=== PATIENT | female | born 1945 | race Caucasian/White ===

== ENCOUNTER 2020-04-30 19:13 | Inpatient (IN) ==
[2020-04-30] MEDS ORDERED: methylPREDNISolone SOD SUC 125 MG/2 ML VIAL IV STA (19:46)
[2020-04-30] MEDS ORDERED: FUROSEMIDE 40 MG/4 ML VIAL IV STA (19:46)
[2020-04-30] MEDS ORDERED: ONDANSETRON 4 MG/2 ML VIAL IV STA (19:46)
[2020-04-30] MEDS ORDERED: ALBUTEROL/IPRATROPIUM 3 ML NEB RESP TX STA (19:46)
[2020-04-30 19:55] LABS: Basophils % 0.2 % (0.0-0.8); Eosinophils # 0.1 10*3/uL (0.0-0.87); Eosinophils % 0.7 % (0.00-10.9); Hematocrit 34.5 VOL% (35.7-47.0); Hemoglobin 11.8 GM/DL (12.0-16.0); Immature Granulocytes % 0.7 %; Immature Granulocytes Absolute 0.07 #; Lymphocytes # 1.8 10*3/uL (1.4-4.0); Lymphocytes % 18.6 % (21.3-54.2); Mean Corpuscular HGB Conc 34.2 GM/DL (32-36); Mean Corpuscular Volume 121.5 FL (87-102); Mean Platelet Volume 11.4 FL (9.6-12.0); Neutrophils % 74.8 % (38.7-73.9); Platelet Count 307 T/CUMM (130-400); Red Blood Count 2.84 MC/CUMM (3.8-5.5); Red Cell Distribution Width 12.9 % (9.3-17.3); White Blood Count 9.9 T/CUMM (4-12)
[2020-04-30 20:11] LABS: INR 1.1; PT Patient Result 12.2 SECS (9.8-11.9)
[2020-04-30 20:13] LABS: Alanine Aminotransferase 10 U/L (13-56); Albumin 3.7 G/DL (3.4-5.0); Alkaline Phosphatase 173 U/L (45-117); Amylase 27 U/L (25-115); Aspartate Amino Transferase 17 U/L (0-37); Blood Urea Nitrogen 31 MG/DL (7-18); Calcium 9.6 MG/DL (8.5-10.1); Estimated Glom Filtration Rate 45 ML/MIN; Free T4 (Free Thyroxine) 1.21 NG/DL (0.76-1.46); Glucose 133 MG/DL (74-106); Total Protein 7.5 G/DL (6.4-8.3); Troponin I < 0.015 NG/ML (0.00-0.045)
[2020-04-30] MEDS ORDERED: MAGNESIUM SULF RIDER 2 GM in PREMIX 1 EACH IV STA (20:39)
[2020-04-30 22:23] LABS: Bilirubin,Urine Negative (Negative); Blood, Urine Negative (Negative); Glucose,Urine (UA) Negative (Negative); Hyaline Casts,Urine 3 /LPF (0-3); Ketones,Urine Negative (Negative); Mucus,Urine Occasional /LPF (Occasional); Nitrite,Urine Negative (Negative); Protein,Urine Negative; RBC,Urine 1 /HPF (0-4); Squamous Epithelial Cell,Urine Occasional /HPF (0-10); Urine Appearance CLEAR (Clear); Urine Color Yellow (Yellow); Urine Specific Gravity 1.015 (1.001-1.035); Urine Urobilinogen < 2.0 EU/DL (0.2-1.0); WBC,Urine 1 /HPF (0-6)
[2020-04-30] MEDS ORDERED: ENOXAPARIN 100 MG/ML SYRINGE SUBCUT STA (22:24)
[2020-04-30 23:08] LABS: ABG Base Excess -0.7 MMOL/L (-2.5-2.5); ABG HCO3 23.6 MMOL/L (20-26); ABG PCO2 38.9 MM HG (35-48); ABG PH 7.398 (7.35-7.45); ABG PO2 53.1 MM HG (80-95); ABG TCO2 21.6 MMOL/L (23-27); Allen Test Positive
[2020-04-30] MEDS ORDERED: DEXTROSE 50% 25 GM/50 ML VIAL IV PRN (23:18)
[2020-04-30] MEDS ORDERED: GLUCAGON 1 MG VIAL IM PRN (23:18)
[2020-04-30] MEDS ORDERED: ONDANSETRON 4 MG/2 ML VIAL IV PRN (23:18)
[2020-05-01] MEDS ORDERED: ALBUTEROL 2.5 MG/3 ML NEB RESP TX SCH (01:00)
[2020-05-01] MEDS: SODIUM CHLORIDE 0.9% 1,000 ML IV SCH ×2 (02:43→17:47)
[2020-05-01] MEDS: cefTRIAXone 1,000 MG in SYRINGE 1 EACH IV SCH ×2 (02:43)
[2020-05-01 04:02] LABS: Basophils % 0.1 % (0.0-0.8); Hematocrit 33.2 VOL% (35.7-47.0); Hemoglobin 11.3 GM/DL (12.0-16.0); Immature Granulocytes % 1.3 %; Immature Granulocytes Absolute 0.09 #; Lymphocytes # 0.7 10*3/uL (1.4-4.0); Lymphocytes % 9.6 % (21.3-54.2); Mean Corpuscular Volume 121.6 FL (87-102); Mean Platelet Volume 11.8 FL (9.6-12.0); Monocytes % 1.1 % (1.7-12.7); Neutrophils % 87.9 % (38.7-73.9); Platelet Count 229 T/CUMM (130-400); Red Blood Count 2.73 MC/CUMM (3.8-5.5); Red Cell Distribution Width 12.8 % (9.3-17.3); White Blood Count 7.1 T/CUMM (4-12)
[2020-05-01 04:27] LABS: Platelet Estimate Adequate
[2020-05-01 04:28] LABS: Calcium 9.2 MG/DL (8.5-10.1); Osmolality,Calculated 279.1 MOS/KG (273-304)
[2020-05-01] MEDS: GABAPENTIN 100 MG CAPSULE PO SCH (08:29)
[2020-05-01] MEDS: AZITHROMYCIN 250 MG TABLET PO SCH (08:29)
[2020-05-01] MEDS: HYDROXYUREA 500 MG CAPSULE PO SCH (08:29)
[2020-05-01] MEDS: PANTOPRAZOLE 40 MG TABLET PO SCH (08:29)
[2020-05-01] MEDS: amLODIPine 5 MG TABLET PO SCH (08:29)
[2020-05-01] MEDS: METHOTREXATE 2.5 MG TABLET PO SCH (08:29)
[2020-05-01] MEDS: atenoloL 50 MG TABLET PO SCH (08:29)
[2020-05-01] MEDS: predniSONE 1 MG TABLET PO SCH ×3 (08:29→20:19)
[2020-05-01] MEDS: ENOXAPARIN 100 MG/ML SYRINGE SUBCUT SCH ×2 (08:29→20:19)
[2020-05-01] MEDS: MAGNESIUM CHLORIDE 64 MG TABLET PO SCH (11:11)
[2020-05-01] MEDS ORDERED: HALOPERIDOL 5 MG/ML AMP IV PRN (16:58)
[2020-05-01] MEDS: SIMVASTATIN 20 MG TABLET PO SCH (20:19)
[2020-05-02] MEDS: cefTRIAXone 1,000 MG in SYRINGE 1 EACH IV SCH (00:19)
[2020-05-02 04:23] LABS: Basophils % 0.1 % (0.0-0.8); Hematocrit 33.2 VOL% (35.7-47.0); Hemoglobin 11.2 GM/DL (12.0-16.0); Immature Granulocytes % 1.3 %; Immature Granulocytes Absolute 0.16 #; Lymphocytes # 1.1 10*3/uL (1.4-4.0); Lymphocytes % 9.1 % (21.3-54.2); Mean Corpuscular HGB Conc 33.7 GM/DL (32-36); Mean Corpuscular Volume 120.3 FL (87-102); Mean Platelet Volume 11.3 FL (9.6-12.0); Monocytes % 5.3 % (1.7-12.7); Neutrophils % 84.2 % (38.7-73.9); Platelet Count 276 T/CUMM (130-400); Red Blood Count 2.76 MC/CUMM (3.8-5.5); Red Cell Distribution Width 12.6 % (9.3-17.3); White Blood Count 12.2 T/CUMM (4-12)
[2020-05-02 04:43] LABS: Calcium 9.2 MG/DL (8.5-10.1); Osmolality,Calculated 287.7 MOS/KG (273-304)
[2020-05-02 04:49] LABS: Hypochromasia 1+; Platelet Estimate Adequate
[2020-05-02] MEDS: PANTOPRAZOLE 40 MG TABLET PO SCH (08:35)
[2020-05-02] MEDS: MAGNESIUM CHLORIDE 64 MG TABLET PO SCH (08:35)
[2020-05-02] MEDS: METHOTREXATE 2.5 MG TABLET PO SCH (08:35)
[2020-05-02] MEDS: HYDROXYUREA 500 MG CAPSULE PO SCH (08:36)
[2020-05-02] MEDS: GABAPENTIN 100 MG CAPSULE PO SCH (08:36)
[2020-05-02] MEDS: predniSONE 1 MG TABLET PO SCH ×3 (08:36→21:15)
[2020-05-02] MEDS: AZITHROMYCIN 250 MG TABLET PO SCH (08:36)
[2020-05-02] MEDS: atenoloL 50 MG TABLET PO SCH (08:44)
[2020-05-02] MEDS: amLODIPine 5 MG TABLET PO SCH (08:44)
[2020-05-02] MEDS: APIXABAN 5 MG TABLET PO SCH ×2 (08:48→21:15)
[2020-05-02] MEDS: SIMVASTATIN 20 MG TABLET PO SCH (21:15)
[2020-05-03] MEDS ORDERED: IBUPROFEN 600 MG TABLET PO PRN ×2 (00:09→00:30)
[2020-05-03] MEDS: cefTRIAXone 1,000 MG in SYRINGE 1 EACH IV SCH (00:12)
[2020-05-03 05:24] LABS: Basophils % 0.1 % (0.0-0.8); Eosinophils # 0.1 10*3/uL (0.0-0.87); Eosinophils % 0.9 % (0.00-10.9); Hematocrit 32.1 VOL% (35.7-47.0); Hemoglobin 10.8 GM/DL (12.0-16.0); Immature Granulocytes % 0.9 %; Immature Granulocytes Absolute 0.06 #; Lymphocytes # 1.5 10*3/uL (1.4-4.0); Lymphocytes % 21.1 % (21.3-54.2); Mean Corpuscular HGB Conc 33.6 GM/DL (32-36); Mean Corpuscular Volume 121.1 FL (87-102); Mean Platelet Volume 11.5 FL (9.6-12.0); Monocytes % 5.8 % (1.7-12.7); NRBC # 0.02 10*3/uL; Neutrophils % 71.2 % (38.7-73.9); Platelet Count 226 T/CUMM (130-400); Red Blood Count 2.65 MC/CUMM (3.8-5.5); Red Cell Distribution Width 12.9 % (9.3-17.3); White Blood Count 6.9 T/CUMM (4-12)
[2020-05-03 05:40] LABS: Calcium 8.7 MG/DL (8.5-10.1); Osmolality,Calculated 288.5 MOS/KG (273-304)
[2020-05-03 05:50] LABS: Hypochromasia 1+; Macrocytosis 1+; Platelet Estimate Normal; Polychromasia Slight
[2020-05-03] MEDS: AZITHROMYCIN 250 MG TABLET PO SCH (09:37)
[2020-05-03] MEDS: MAGNESIUM CHLORIDE 64 MG TABLET PO SCH (09:37)
[2020-05-03] MEDS: APIXABAN 5 MG TABLET PO SCH (09:38)
[2020-05-03] MEDS: HYDROXYUREA 500 MG CAPSULE PO SCH (09:38)
[2020-05-03] MEDS: predniSONE 1 MG TABLET PO SCH (09:38)
[2020-05-03] MEDS: GABAPENTIN 100 MG CAPSULE PO SCH (09:38)
[2020-05-03] MEDS: amLODIPine 5 MG TABLET PO SCH (09:38)
[2020-05-03] MEDS: METHOTREXATE 2.5 MG TABLET PO SCH (09:39)
[2020-05-03] MEDS: atenoloL 50 MG TABLET PO SCH (09:39)
[2020-05-03] MEDS: PANTOPRAZOLE 40 MG TABLET PO SCH (09:53)
[2020-05-03 13:54] VITALS: BP 133/60
[2020-05-04] MEDS ORDERED: LEVOFLOXACIN 500 MG TABLET PO SCH (09:00)
[2020-05-09] MEDS ORDERED: APIXABAN 5 MG TABLET PO SCH (21:00)
== END 2020-05-03 15:40 | disposition home or self-care (01) | DRG 175 ==
LOC: N.ED 19:13 → N.EDINP 23:18 → N.CC 05-01 00:52 → N.4E 05-02 15:26
PROVIDERS: ADMIT Hospitalist; ATTEND Hospitalist

== ENCOUNTER 2020-05-15 16:57 | Inpatient (IN) ==
[2020-05-15] MEDS ORDERED: SODIUM CHLORIDE 0.9% 500 ML IV STA (18:09)
[2020-05-15 18:44] LABS: Basophils % 0.2 % (0.0-0.8); Eosinophils # 0.2 10*3/uL (0.0-0.87); Eosinophils % 1.2 % (0.00-10.9); Hematocrit 32.9 VOL% (35.7-47.0); Hemoglobin 10.8 GM/DL (12.0-16.0); Immature Granulocytes Absolute 0.24 #; Lymphocytes # 1.3 10*3/uL (1.4-4.0); Lymphocytes % 10.4 % (21.3-54.2); Mean Corpuscular HGB Conc 32.8 GM/DL (32-36); Monocytes % 4.9 % (1.7-12.7); NRBC # 0.03 10*3/uL; Neutrophils % 81.3 % (38.7-73.9); Platelet Count 263 T/CUMM (130-400); Red Blood Count 2.72 MC/CUMM (3.8-5.5); Red Cell Distribution Width 13.8 % (9.3-17.3); White Blood Count 12.1 T/CUMM (4-12)
[2020-05-15 18:50] LABS: INR 1.5; PT Patient Result 15.6 SECS (9.8-11.9)
[2020-05-15 18:53] LABS: Alanine Aminotransferase < 9 U/L (13-56); Albumin 3.1 G/DL (3.4-5.0); Alkaline Phosphatase 226 U/L (45-117); Aspartate Amino Transferase 16 U/L (0-37); Blood Urea Nitrogen 30 MG/DL (7-18); Calcium 9.7 MG/DL (8.5-10.1); Estimated Glom Filtration Rate 38 ML/MIN; Glucose 106 MG/DL (74-106); Osmolality,Calculated 273.2 MOS/KG (273-304); Total Protein 7.3 G/DL (6.4-8.3); Troponin I < 0.015 NG/ML (0.00-0.045)
[2020-05-15] MEDS ORDERED: SODIUM CHLORIDE 0.9% 1,000 ML IV STA (20:06)
[2020-05-15] MEDS ORDERED: CEFEPIME 1,000 MG in SODIUM CHLORIDE 0.9% 100 ML IV STA (20:07)
[2020-05-15] MEDS ORDERED: VANCOMYCIN INJ 1,000 MG in SODIUM CHLORIDE 0.9% 250 ML IV STA (20:07)
[2020-05-15] MEDS ORDERED: ONDANSETRON 4 MG/2 ML VIAL IV PRN (21:41)
[2020-05-15] MEDS ORDERED: DEXTROSE 50% 25 GM/50 ML VIAL IV PRN (21:41)
[2020-05-15] MEDS ORDERED: GLUCAGON 1 MG VIAL IM PRN (21:41)
[2020-05-16 00:25] LABS: Basophils % 0.4 % (0.0-0.8); Eosinophils # 0.1 10*3/uL (0.0-0.87); Hematocrit 30.9 VOL% (35.7-47.0); Hemoglobin 10.2 GM/DL (12.0-16.0); Immature Granulocytes % 2.7 %; Immature Granulocytes Absolute 0.29 #; Lymphocytes # 1.7 10*3/uL (1.4-4.0); Lymphocytes % 15.5 % (21.3-54.2); Mean Corpuscular Volume 122.6 FL (87-102); Mean Platelet Volume 10.9 FL (9.6-12.0); Monocytes % 5.7 % (1.7-12.7); NRBC # 0.02 10*3/uL; Neutrophils % 74.7 % (38.7-73.9); Platelet Count 234 T/CUMM (130-400); Red Blood Count 2.52 MC/CUMM (3.8-5.5); Red Cell Distribution Width 13.8 % (9.3-17.3); White Blood Count 10.9 T/CUMM (4-12)
[2020-05-16 00:51] LABS: Calcium 8.8 MG/DL (8.5-10.1); Osmolality,Calculated 279.7 MOS/KG (273-304)
[2020-05-16] MEDS: CEFEPIME 1,000 MG in SODIUM CHLORIDE 0.9% 100 ML IV SCH ×5 (01:52→21:13)
[2020-05-16] MEDS: CALCIUM (CARBONATE)/VITAMIN D 500 MG-200 UNIT TABLET PO SCH (08:13)
[2020-05-16] MEDS: CYANOCOBALAMIN 500 MCG TABLET PO SCH (08:13)
[2020-05-16] MEDS: predniSONE 1 MG TABLET PO SCH (08:14)
[2020-05-16] MEDS: atenoloL 50 MG TABLET PO SCH (08:14)
[2020-05-16] MEDS: PANTOPRAZOLE 40 MG TABLET PO SCH (08:14)
[2020-05-16] MEDS: ACETAMINOPHEN 325 MG TABLET PO PRN ×3 (08:14→21:07)
[2020-05-16] MEDS: FLUoxetine 20 MG CAPSULE PO SCH (08:14)
[2020-05-16] MEDS ORDERED: APIXABAN 5 MG TABLET PO SCH (09:00)
[2020-05-16] MEDS ORDERED: FUROSEMIDE 40 MG/4 ML VIAL IV ONE (16:05)
[2020-05-16] MEDS: methylPREDNISolone SOD SUC 40 MG/1 ML VIAL IV SCH (17:53)
[2020-05-16] MEDS: APIXABAN 5 MG TABLET PO SCH (21:06)
[2020-05-16] MEDS: GABAPENTIN 100 MG CAPSULE PO SCH (21:07)
[2020-05-16] MEDS: PRAMIPEXOLE 0.25 MG TABLET PO SCH (21:08)
[2020-05-16] MEDS: SIMVASTATIN 20 MG TABLET PO SCH (21:08)
[2020-05-16 21:55] LABS: Bacteria,Urine Occasional /HPF (Few); Bilirubin,Urine Negative (Negative); Blood, Urine Small mg/dL (Negative); Glucose,Urine (UA) Negative (Negative); Hyaline Casts,Urine 8 /LPF (0-3); Ketones,Urine 20 mg/dL (Negative); Mucus,Urine Occasional /LPF (Occasional); Nitrite,Urine Negative (Negative); Protein,Urine Negative; RBC,Urine 2 /HPF (0-4); Squamous Epithelial Cell,Urine Occasional /HPF (0-10); Urine Appearance CLEAR (Clear); Urine Color Yellow (Yellow); Urine Specific Gravity 1.015 (1.001-1.035); Urine Urobilinogen < 2.0 EU/DL (0.2-1.0); WBC,Urine 5 /HPF (0-6)
[2020-05-16] MEDS: VANCOMYCIN INJ 1,250 MG in SODIUM CHLORIDE 0.9% 250 ML IV SCH (22:22)
[2020-05-17] MEDS: methylPREDNISolone SOD SUC 40 MG/1 ML VIAL IV SCH ×3 (02:01→16:36)
[2020-05-17] MEDS: CEFEPIME 1,000 MG in SODIUM CHLORIDE 0.9% 100 ML IV SCH ×3 (04:20→21:41)
[2020-05-17 06:14] LABS: Basophils % 0.4 % (0.0-0.8); Eosinophils % 0.3 % (0.00-10.9); Hemoglobin 9.7 GM/DL (12.0-16.0); Immature Granulocytes % 2.2 %; Immature Granulocytes Absolute 0.21 #; Lymphocytes # 0.7 10*3/uL (1.4-4.0); Lymphocytes % 7.6 % (21.3-54.2); Mean Corpuscular HGB Conc 32.3 GM/DL (32-36); Mean Platelet Volume 11.6 FL (9.6-12.0); Monocytes % 1.8 % (1.7-12.7); NRBC # 0.04 10*3/uL; Neutrophils % 87.7 % (38.7-73.9); Platelet Count 220 T/CUMM (130-400); Red Blood Count 2.44 MC/CUMM (3.8-5.5); Red Cell Distribution Width 13.5 % (9.3-17.3); White Blood Count 9.7 T/CUMM (4-12)
[2020-05-17 06:46] LABS: % Iron Saturation 23.2 % (18-50); Ferritin 140.8 ng/ml (8-252)
[2020-05-17 07:12] LABS: Folate 22.7 NG/ML (5.4-24.0); Vitamin B12 1866 PG/ML (211-911)
[2020-05-17 07:24] LABS: Calcium 9.2 MG/DL (8.5-10.1)
[2020-05-17 08:08] LABS: Sedimentation Rate-Westergren 106 MM/HR (0-30)
[2020-05-17 08:47] LABS: Osmolality,Calculated 278.7 MOS/KG (273-304)
[2020-05-17] MEDS: APIXABAN 5 MG TABLET PO SCH ×2 (08:54→21:39)
[2020-05-17] MEDS: CYANOCOBALAMIN 500 MCG TABLET PO SCH (08:54)
[2020-05-17] MEDS: FLUoxetine 20 MG CAPSULE PO SCH (08:54)
[2020-05-17] MEDS: PANTOPRAZOLE 40 MG TABLET PO SCH (08:54)
[2020-05-17] MEDS: atenoloL 50 MG TABLET PO SCH (08:54)
[2020-05-17] MEDS: predniSONE 1 MG TABLET PO SCH (08:55)
[2020-05-17] MEDS: CALCIUM (CARBONATE)/VITAMIN D 500 MG-200 UNIT TABLET PO SCH (08:55)
[2020-05-17] MEDS: AZITHROMYCIN INJ 500 MG in SODIUM CHLORIDE 0.9% 250 ML IV SCH (16:36)
[2020-05-17] MEDS: ACETAMINOPHEN 325 MG TABLET PO PRN (18:01)
[2020-05-17] MEDS: VANCOMYCIN INJ 1,250 MG in SODIUM CHLORIDE 0.9% 250 ML IV SCH (21:41)
[2020-05-17] MEDS: PRAMIPEXOLE 0.25 MG TABLET PO SCH (21:41)
[2020-05-17] MEDS: GABAPENTIN 100 MG CAPSULE PO SCH (21:41)
[2020-05-17] MEDS: SIMVASTATIN 20 MG TABLET PO SCH (21:41)
[2020-05-18 05:39] LABS: Basophils % 0.2 % (0.0-0.8); Eosinophils # 0.1 10*3/uL (0.0-0.87); Eosinophils % 0.5 % (0.00-10.9); Hematocrit 28.3 VOL% (35.7-47.0); Hemoglobin 9.2 GM/DL (12.0-16.0); Immature Granulocytes % 1.7 %; Immature Granulocytes Absolute 0.21 #; Lymphocytes # 1.4 10*3/uL (1.4-4.0); Lymphocytes % 11.4 % (21.3-54.2); Mean Corpuscular HGB Conc 32.5 GM/DL (32-36); Mean Corpuscular Volume 121.5 FL (87-102); Mean Platelet Volume 11.5 FL (9.6-12.0); Monocytes % 6.7 % (1.7-12.7); NRBC # 0.02 10*3/uL; Neutrophils % 79.5 % (38.7-73.9); Platelet Count 241 T/CUMM (130-400); Red Blood Count 2.33 MC/CUMM (3.8-5.5); Red Cell Distribution Width 13.5 % (9.3-17.3); White Blood Count 12.1 T/CUMM (4-12)
[2020-05-18 06:27] LABS: Hypochromasia Slight; Macrocytosis 1+; Platelet Estimate Normal
[2020-05-18 06:45] LABS: Calcium 9.2 MG/DL (8.5-10.1); Osmolality,Calculated 276.8 MOS/KG (273-304)
[2020-05-18] MEDS: CEFEPIME 1,000 MG in SODIUM CHLORIDE 0.9% 100 ML IV SCH ×2 (10:18→18:32)
[2020-05-18] MEDS: methylPREDNISolone SOD SUC 40 MG/1 ML VIAL IV SCH ×2 (10:18→18:33)
[2020-05-18] MEDS: predniSONE 1 MG TABLET PO SCH (10:19)
[2020-05-18] MEDS: CALCIUM (CARBONATE)/VITAMIN D 500 MG-200 UNIT TABLET PO SCH (10:19)
[2020-05-18] MEDS: FLUoxetine 20 MG CAPSULE PO SCH (10:20)
[2020-05-18] MEDS: CYANOCOBALAMIN 500 MCG TABLET PO SCH (10:20)
[2020-05-18] MEDS: atenoloL 50 MG TABLET PO SCH (10:20)
[2020-05-18] MEDS: PANTOPRAZOLE 40 MG TABLET PO SCH (10:20)
[2020-05-18] MEDS: APIXABAN 5 MG TABLET PO SCH ×2 (10:20→20:26)
[2020-05-18] MEDS: VANCOMYCIN INJ 1,250 MG in SODIUM CHLORIDE 0.9% 250 ML IV SCH (11:49)
[2020-05-18] MEDS: AZITHROMYCIN INJ 500 MG in SODIUM CHLORIDE 0.9% 250 ML IV SCH (16:40)
[2020-05-18] MEDS: ALBUTEROL/IPRATROPIUM 3 ML NEB RESP TX SCH (19:24)
[2020-05-18] MEDS: PRAMIPEXOLE 0.25 MG TABLET PO SCH (20:23)
[2020-05-18] MEDS: SIMVASTATIN 20 MG TABLET PO SCH (20:23)
[2020-05-18] MEDS: GABAPENTIN 100 MG CAPSULE PO SCH (20:24)
[2020-05-18] MEDS ORDERED: ZALEPLON 5 MG CAPSULE PO ONE (23:30)
[2020-05-18] MEDS ORDERED: ZOLPIDEM 5 MG TABLET PO ONE (23:30)
[2020-05-19] MEDS: ALBUTEROL/IPRATROPIUM 3 ML NEB RESP TX SCH ×4 (01:05→20:01)
[2020-05-19] MEDS: methylPREDNISolone SOD SUC 40 MG/1 ML VIAL IV SCH ×3 (01:57→18:17)
[2020-05-19] MEDS: CEFEPIME 1,000 MG in SODIUM CHLORIDE 0.9% 100 ML IV SCH ×3 (02:01→21:10)
[2020-05-19 06:12] LABS: Basophils % 0.1 % (0.0-0.8); Hematocrit 27.1 VOL% (35.7-47.0); Hemoglobin 9.1 GM/DL (12.0-16.0); Immature Granulocytes % 2.1 %; Lymphocytes # 0.6 10*3/uL (1.4-4.0); Mean Corpuscular HGB Conc 33.6 GM/DL (32-36); Mean Corpuscular Volume 118.3 FL (87-102); Mean Platelet Volume 11.5 FL (9.6-12.0); Monocytes % 2.1 % (1.7-12.7); NRBC # 0.03 10*3/uL; Neutrophils % 89.7 % (38.7-73.9); Platelet Count 222 T/CUMM (130-400); Red Blood Count 2.29 MC/CUMM (3.8-5.5); Red Cell Distribution Width 13.7 % (9.3-17.3); White Blood Count 9.7 T/CUMM (4-12)
[2020-05-19 06:38] LABS: Calcium 9.4 MG/DL (8.5-10.1); Osmolality,Calculated 282.7 MOS/KG (273-304)
[2020-05-19 07:06] LABS: Band Neutrophils 1 % (0-10); Hypochromasia 1+; Lymphocytes 5 % (20-55); Macrocytosis Slight; Nucleated Red Blood Cells 1 (0-5); Ovalocytes Slight; Platelet Estimate Adequate; Segmented Neutrophils 93 % (50-85); Total Cells Counted 100
[2020-05-19] MEDS: CALCIUM (CARBONATE)/VITAMIN D 500 MG-200 UNIT TABLET PO SCH (10:52)
[2020-05-19] MEDS: FLUoxetine 20 MG CAPSULE PO SCH (10:52)
[2020-05-19] MEDS: predniSONE 1 MG TABLET PO SCH (10:53)
[2020-05-19] MEDS: atenoloL 50 MG TABLET PO SCH (10:53)
[2020-05-19] MEDS: CYANOCOBALAMIN 500 MCG TABLET PO SCH (10:53)
[2020-05-19] MEDS: APIXABAN 5 MG TABLET PO SCH ×2 (10:53→21:22)
[2020-05-19] MEDS: FUROSEMIDE 40 MG TABLET PO SCH (10:54)
[2020-05-19] MEDS: PANTOPRAZOLE 40 MG TABLET PO SCH (10:54)
[2020-05-19 12:36] LABS: Procalcitonin, S < 0.10 ng/mL (<=0.15)
[2020-05-19] MEDS: VANCOMYCIN INJ 1,250 MG in SODIUM CHLORIDE 0.9% 250 ML IV SCH (12:38)
[2020-05-19 12:56] LABS: Hb A 93.8 % (95.8-98.0); Hb A2 2.4 % (2.0-3.3); Hb F 3.8 % (0.0-0.9)
[2020-05-19] MEDS: AZITHROMYCIN INJ 500 MG in SODIUM CHLORIDE 0.9% 250 ML IV SCH (16:56)
[2020-05-19] MEDS ORDERED: ZOLPIDEM 5 MG TABLET PO ONE (21:12)
[2020-05-19] MEDS: GABAPENTIN 100 MG CAPSULE PO SCH (21:22)
[2020-05-19] MEDS: SIMVASTATIN 20 MG TABLET PO SCH (21:22)
[2020-05-19] MEDS: PRAMIPEXOLE 0.25 MG TABLET PO SCH (21:23)
[2020-05-20] MEDS: methylPREDNISolone SOD SUC 40 MG/1 ML VIAL IV SCH ×3 (02:10→21:22)
[2020-05-20] MEDS: CEFEPIME 1,000 MG in SODIUM CHLORIDE 0.9% 100 ML IV SCH ×3 (02:18→21:58)
[2020-05-20] MEDS: ALBUTEROL/IPRATROPIUM 3 ML NEB RESP TX SCH ×4 (02:19→19:32)
[2020-05-20 06:35] LABS: Basophils % 0.1 % (0.0-0.8); Hematocrit 26.7 VOL% (35.7-47.0); Hemoglobin 8.8 GM/DL (12.0-16.0); Immature Granulocytes % 3.1 %; Immature Granulocytes Absolute 0.32 #; Lymphocytes # 0.5 10*3/uL (1.4-4.0); Lymphocytes % 5.1 % (21.3-54.2); Mean Corpuscular Volume 118.7 FL (87-102); Monocytes % 4.4 % (1.7-12.7); NRBC # 0.05 10*3/uL; Neutrophils % 87.3 % (38.7-73.9); Platelet Count 209 T/CUMM (130-400); Red Blood Count 2.25 MC/CUMM (3.8-5.5); Red Cell Distribution Width 13.9 % (9.3-17.3); White Blood Count 10.5 T/CUMM (4-12)
[2020-05-20 06:55] LABS: Calcium 9.1 MG/DL (8.5-10.1); Osmolality,Calculated 284.7 MOS/KG (273-304)
[2020-05-20 07:03] LABS: Hypochromasia 2+; Ovalocytes Slight; Platelet Estimate Adequate
[2020-05-20 07:04] LABS: Macrocytosis Slight
[2020-05-20] MEDS: FLUoxetine 20 MG CAPSULE PO SCH (12:14)
[2020-05-20] MEDS: FUROSEMIDE 40 MG TABLET PO SCH (12:15)
[2020-05-20] MEDS: atenoloL 50 MG TABLET PO SCH (12:15)
[2020-05-20] MEDS: CYANOCOBALAMIN 500 MCG TABLET PO SCH (12:15)
[2020-05-20] MEDS: predniSONE 1 MG TABLET PO SCH (12:15)
[2020-05-20] MEDS: PANTOPRAZOLE 40 MG TABLET PO SCH (12:16)
[2020-05-20] MEDS: APIXABAN 5 MG TABLET PO SCH ×2 (12:16→21:22)
[2020-05-20] MEDS: CALCIUM (CARBONATE)/VITAMIN D 500 MG-200 UNIT TABLET PO SCH (12:16)
[2020-05-20] MEDS: VANCOMYCIN INJ 1,250 MG in SODIUM CHLORIDE 0.9% 250 ML IV SCH (17:38)
[2020-05-20] MEDS: AZITHROMYCIN INJ 500 MG in SODIUM CHLORIDE 0.9% 250 ML IV SCH (20:23)
[2020-05-20] MEDS: PRAMIPEXOLE 0.25 MG TABLET PO SCH (21:22)
[2020-05-20] MEDS: GABAPENTIN 100 MG CAPSULE PO SCH (21:22)
[2020-05-20] MEDS: SIMVASTATIN 20 MG TABLET PO SCH (21:23)
[2020-05-21] MEDS: ALBUTEROL/IPRATROPIUM 3 ML NEB RESP TX SCH ×3 (00:29→19:45)
[2020-05-21] MEDS: methylPREDNISolone SOD SUC 40 MG/1 ML VIAL IV SCH ×3 (02:00→18:22)
[2020-05-21] MEDS: CEFEPIME 1,000 MG in SODIUM CHLORIDE 0.9% 100 ML IV SCH ×3 (05:54→22:41)
[2020-05-21 06:06] LABS: Basophils % 0.1 % (0.0-0.8); Hematocrit 25.8 VOL% (35.7-47.0); Hemoglobin 8.3 GM/DL (12.0-16.0); Immature Granulocytes % 3.7 %; Immature Granulocytes Absolute 0.35 #; Lymphocytes # 0.5 10*3/uL (1.4-4.0); Mean Corpuscular HGB Conc 32.2 GM/DL (32-36); Mean Corpuscular Volume 118.3 FL (87-102); Mean Platelet Volume 12.4 FL (9.6-12.0); Monocytes % 4.5 % (1.7-12.7); NRBC # 0.09 10*3/uL; Neutrophils % 86.7 % (38.7-73.9); Platelet Count 185 T/CUMM (130-400); Red Blood Count 2.18 MC/CUMM (3.8-5.5); Red Cell Distribution Width 13.9 % (9.3-17.3); White Blood Count 9.6 T/CUMM (4-12)
[2020-05-21 06:17] LABS: Calcium 9.1 MG/DL (8.5-10.1); Osmolality,Calculated 284.7 MOS/KG (273-304)
[2020-05-21 06:30] LABS: Hypochromasia 1+; Ovalocytes Slight; Platelet Estimate Adequate
[2020-05-21 06:31] LABS: Macrocytosis Slight
[2020-05-21] MEDS: predniSONE 1 MG TABLET PO SCH (11:00)
[2020-05-21] MEDS: APIXABAN 5 MG TABLET PO SCH ×2 (11:00→21:35)
[2020-05-21] MEDS: FLUoxetine 20 MG CAPSULE PO SCH (11:00)
[2020-05-21] MEDS: CYANOCOBALAMIN 500 MCG TABLET PO SCH (11:01)
[2020-05-21] MEDS: atenoloL 50 MG TABLET PO SCH (11:01)
[2020-05-21] MEDS: FUROSEMIDE 40 MG TABLET PO SCH (11:01)
[2020-05-21] MEDS: CALCIUM (CARBONATE)/VITAMIN D 500 MG-200 UNIT TABLET PO SCH (11:03)
[2020-05-21] MEDS: PANTOPRAZOLE 40 MG TABLET PO SCH (11:05)
[2020-05-21] MEDS: VANCOMYCIN INJ 1,250 MG in SODIUM CHLORIDE 0.9% 250 ML IV SCH (12:51)
[2020-05-21] MEDS: ACETAMINOPHEN 325 MG TABLET PO PRN (15:26)
[2020-05-21] MEDS: GABAPENTIN 100 MG CAPSULE PO SCH (21:35)
[2020-05-21] MEDS: PRAMIPEXOLE 0.25 MG TABLET PO SCH (21:35)
[2020-05-21] MEDS: SIMVASTATIN 20 MG TABLET PO SCH (21:36)
[2020-05-22] MEDS: ALBUTEROL/IPRATROPIUM 3 ML NEB RESP TX SCH ×5 (00:12→19:33)
[2020-05-22] MEDS: methylPREDNISolone SOD SUC 40 MG/1 ML VIAL IV SCH ×3 (02:29→17:56)
[2020-05-22] MEDS: CEFEPIME 1,000 MG in SODIUM CHLORIDE 0.9% 100 ML IV SCH ×3 (05:50→23:29)
[2020-05-22 06:14] LABS: Basophils % 0.2 % (0.0-0.8); Hematocrit 25.4 VOL% (35.7-47.0); Hemoglobin 8.6 GM/DL (12.0-16.0); Immature Granulocytes % 7.5 %; Immature Granulocytes Absolute 0.95 #; Lymphocytes # 0.6 10*3/uL (1.4-4.0); Lymphocytes % 4.7 % (21.3-54.2); Mean Corpuscular HGB Conc 33.9 GM/DL (32-36); Mean Corpuscular Volume 116.5 FL (87-102); Mean Platelet Volume 12.6 FL (9.6-12.0); Monocytes % 5.9 % (1.7-12.7); Neutrophils % 81.7 % (38.7-73.9); Platelet Count 180 T/CUMM (130-400); Red Blood Count 2.18 MC/CUMM (3.8-5.5); Red Cell Distribution Width 14.4 % (9.3-17.3); White Blood Count 12.6 T/CUMM (4-12)
[2020-05-22 06:32] LABS: Calcium 9.4 MG/DL (8.5-10.1); Osmolality,Calculated 289.4 MOS/KG (273-304)
[2020-05-22 06:45] LABS: Band Neutrophils 2 % (0-10); Hypochromasia Slight; Lymphocytes 5 % (20-55); Macrocytosis 1+; Nucleated Red Blood Cells 1 (0-5); Platelet Estimate Normal; Segmented Neutrophils 90 % (50-85); Total Cells Counted 100
[2020-05-22 07:28] LABS: Hemoglobin A1 (Alkaline) 93.8 % (96.5-98.5); Hemoglobin A2 (Alkaline) 2.4 % (1.5-3.5); Hemoglobin F (Alkaline) 3.8 %
[2020-05-22] MEDS: CYANOCOBALAMIN 500 MCG TABLET PO SCH (08:31)
[2020-05-22] MEDS: FUROSEMIDE 40 MG TABLET PO SCH (08:31)
[2020-05-22] MEDS: predniSONE 1 MG TABLET PO SCH (08:32)
[2020-05-22] MEDS: CALCIUM (CARBONATE)/VITAMIN D 500 MG-200 UNIT TABLET PO SCH (08:32)
[2020-05-22] MEDS: atenoloL 50 MG TABLET PO SCH (08:32)
[2020-05-22] MEDS: PANTOPRAZOLE 40 MG TABLET PO SCH (08:32)
[2020-05-22] MEDS: APIXABAN 5 MG TABLET PO SCH ×2 (08:32→20:46)
[2020-05-22] MEDS: FLUoxetine 20 MG CAPSULE PO SCH (08:32)
[2020-05-22] MEDS ORDERED: POTASSIUM CHLORIDE 20 MEQ TABLET PO ONE (10:30)
[2020-05-22] MEDS: PRAMIPEXOLE 0.25 MG TABLET PO SCH (20:46)
[2020-05-22] MEDS: SIMVASTATIN 20 MG TABLET PO SCH (20:46)
[2020-05-22] MEDS: GABAPENTIN 100 MG CAPSULE PO SCH (20:46)
[2020-05-22] MEDS ORDERED: MAGNESIUM HYDROXIDE SUSP 30 ML UDCUP PO PRN (22:32)
[2020-05-23] MEDS: ALBUTEROL/IPRATROPIUM 3 ML NEB RESP TX SCH ×2 (00:50→07:24)
[2020-05-23] MEDS: methylPREDNISolone SOD SUC 40 MG/1 ML VIAL IV SCH ×2 (02:43→10:20)
[2020-05-23] MEDS: CEFEPIME 1,000 MG in SODIUM CHLORIDE 0.9% 100 ML IV SCH (06:07)
[2020-05-23 08:15] LABS: Basophils % 0.2 % (0.0-0.8); Hematocrit 25.4 VOL% (35.7-47.0); Hemoglobin 8.6 GM/DL (12.0-16.0); Immature Granulocytes Absolute 0.94 #; Lymphocytes # 0.7 10*3/uL (1.4-4.0); Lymphocytes % 5.1 % (21.3-54.2); Mean Corpuscular HGB Conc 33.9 GM/DL (32-36); Mean Corpuscular Volume 115.5 FL (87-102); Mean Platelet Volume 12.2 FL (9.6-12.0); Monocytes % 6.7 % (1.7-12.7); NRBC # 0.19 10*3/uL; Platelet Count 159 T/CUMM (130-400); Red Cell Distribution Width 15.3 % (9.3-17.3); White Blood Count 13.5 T/CUMM (4-12)
[2020-05-23 08:33] LABS: Band Neutrophils 1 % (0-10); Hypochromasia 2+; Lymphocytes 6 % (20-55); Nucleated Red Blood Cells 3 (0-5); Platelet Estimate Adequate; Segmented Neutrophils 90 % (50-85); Total Cells Counted 100
[2020-05-23 08:34] LABS: Macrocytosis Slight
[2020-05-23 08:35] LABS: Polychromasia Slight
[2020-05-23 08:48] LABS: Calcium 9.6 MG/DL (8.5-10.1); Osmolality,Calculated 297.8 MOS/KG (273-304)
[2020-05-23] MEDS: APIXABAN 5 MG TABLET PO SCH (10:18)
[2020-05-23] MEDS: FUROSEMIDE 40 MG TABLET PO SCH (10:19)
[2020-05-23] MEDS: predniSONE 1 MG TABLET PO SCH (10:19)
[2020-05-23] MEDS: PANTOPRAZOLE 40 MG TABLET PO SCH (10:19)
[2020-05-23] MEDS: CALCIUM (CARBONATE)/VITAMIN D 500 MG-200 UNIT TABLET PO SCH (10:19)
[2020-05-23] MEDS: FLUoxetine 20 MG CAPSULE PO SCH (10:19)
[2020-05-23] MEDS: atenoloL 50 MG TABLET PO SCH (10:20)
[2020-05-23] MEDS: CYANOCOBALAMIN 500 MCG TABLET PO SCH (10:20)
[2020-05-23 11:39] VITALS: BP 152/74
== END 2020-05-23 12:34 | DRG 193 ==
LOC: N.ED 16:57 → SUATTDRO 21:41 → N.EDINP 21:41 → N.3E 23:38
PROVIDERS: ADMIT Hospitalist; ATTEND Family Medicine